=== PATIENT | male | born 1945 | race Caucasian/White ===

== ENCOUNTER 2021-01-12 12:16 | Outpatient (CLI) | payer MEDICARE ==
[2021-01-12 14:01] LABS: Hemoglobin 14.4 g/dL (13.5-17.5); Mean Corpuscular HGB CONC 32.6 g/dL (32.0-36.0); Mean Corpuscular Hemoglobin 30.6 pg (27.0-33.0); Mean Platelet Volume 11.2 fl (7.4-10.4); Platelet Count 207 10x3/uL (150-450); RBC Distribution Width 13.2 % (11.5-14.5); White Blood Cell (WBC) Count 4.4 10x3/uL (3.5-10.5)
[2021-01-12 14:13] LABS: Anion Gap 13 mmol/L (10-20); BUN (Urea Nitrogen) 26 mg/dL (8.4-25.7); Calc. Creatinine Clearance 0 mL/min (70-130); Calcium 9.2 mg/dL (7.8-10.44); Carbon Dioxide 28 mmol/L (23-31); Chloride 104 mmol/L (98-107); Glucose 86 mg/dL (83-110); Potassium 4.7 mmol/L (3.5-5.1); Sodium 140 mmol/L (136-145)
[2021-01-12 16:30] LABS: Hemoglobin A1c 5.5 % (4.0-6.0)
[2021-01-12 23:06] LABS: SARS-CoV-2 PCR by NAA Not Detected (NotDetected)
== END 2021-01-12 12:17 | disposition home or self-care (01) ==
LOC: CSHLAB 12:16
PROVIDERS: ATTEND Orthopaedic Surgery
DX: Z01.812 Encounter for preprocedural laboratory examination (principal); Z20.822 Contact with and (suspected) exposure to COVID-19
CPT/HCPCS: 80048; 83036; 85027; 87081; 87635; 93005; 93010; U0003; U0005

== ENCOUNTER 2021-01-12 12:30 | Inpatient (IN) | payer MEDICARE ==
[2021-01-16 13:53] VITALS: BMI 26.6
[2021-01-17] MEDS ORDERED: Acetaminophen 500 MG TAB ONE (06:07)
[2021-01-17] MEDS ORDERED: CeleCOXIB 100 MG CAP ONE (06:07)
[2021-01-17] MEDS ORDERED: Lidocaine 1% MPF 2 ML VIAL ONE ×2 (06:07→06:29)
[2021-01-17] MEDS ORDERED: Gabapentin 300 MG CAP ONE (06:07)
[2021-01-17] MEDS ORDERED: Ropivacaine 0.5% HCl/PF (150 MG/30 ML VIAL) ONE (06:28)
[2021-01-17] MEDS ORDERED: Ropivacaine 0.2% HCl/PF 20 ML ONE (06:28)
[2021-01-17] MEDS ORDERED: Fentanyl 100 MCG/2 ML VIAL ONE ×3 (06:29→08:27)
[2021-01-17] MEDS ORDERED: Lidocaine 1% PF 5 ML VIAL ONE ×2 (06:30→06:52)
[2021-01-17] MEDS ORDERED: Lidocaine 0.5%/Epinephrine 1:200,000 50 ml Vial ONE (06:31)
[2021-01-17] MEDS ORDERED: Neomycin-Polymyxin 1 ML AMP ONE (06:32)
[2021-01-17] MEDS ORDERED: EPINEPHrine 1 MG/ML AMP ONE ×2 (06:34→07:56)
[2021-01-17] MEDS ORDERED: Dexamethasone 4 mg/ml Vial ONE (06:34)
[2021-01-17] MEDS ORDERED: Ketorolac Tromethamine 30 MG/ML VIAL ONE ×2 (06:34→07:56)
[2021-01-17] MEDS ORDERED: Tranexamic Acid 1,000 MG/10 ML VIAL ONE (06:35)
[2021-01-17] MEDS ORDERED: Ropivacaine 0.2% HCl/PF 40 ML ONE ×3 (06:35→07:56)
[2021-01-17] MEDS ORDERED: Acetaminophen 325 MG TAB PO PRN (06:45)
[2021-01-17] MEDS ORDERED: traMADol HCl 50 MG TAB PO PRN (06:45)
[2021-01-17] MEDS ORDERED: Zolpidem Tartrate 5 MG TAB PO PRN (06:45)
[2021-01-17] MEDS ORDERED: Promethazine HCl 25 MG/ML VIAL IM PRN ×2 (06:45→09:55)
[2021-01-17] MEDS ORDERED: diphenhydrAMINE 25 MG CAP PO PRN (06:45)
[2021-01-17] MEDS ORDERED: Fentanyl 100 MCG/2 ML VIAL SLOW IVP PRN (06:45)
[2021-01-17] MEDS ORDERED: PROPOFOL 20 ML ONE (06:51)
[2021-01-17] MEDS ORDERED: Senokot S 8.6-50 MG TAB PO SCH (09:00)
[2021-01-17] MEDS ORDERED: Meperidine HCl/PF 25 MG/ML VIAL SLOW IVP PRN (09:55)
[2021-01-17] MEDS ORDERED: PACU-Morphine 4MG/ML VIAL SLOW IVP PRN (09:55)
[2021-01-17] MEDS ORDERED: Promethazine HCl 25 MG/ML VIAL SLOW IVP PRN (09:55)
[2021-01-17] MEDS: HYDROcodone/Acetaminophen 10/325 mg Tablet PO PRN (13:44)
[2021-01-17] MEDS: CEFAZOLIN 2 GM in Premix Bag 1 BAG IVPB SCH ×2 (16:43→23:50)
[2021-01-17] MEDS: Ketorolac Tromethamine 30 MG/ML VIAL IVP SCH ×2 (16:43→23:49)
[2021-01-17] MEDS: Sodium Chloride 0.9% 1,000 ML IV SCH (16:54)
[2021-01-17] MEDS: Ondansetron PF 4 MG/2 ML Vial IVP PRN (18:02)
[2021-01-18 04:53] LABS: Hemoglobin 11.9 g/dL (13.5-17.5); Mean Corpuscular HGB CONC 33.7 g/dL (32.0-36.0); Mean Corpuscular Hemoglobin 31.6 pg (27.0-33.0); Mean Corpuscular Volume 93.6 fl (81.2-95.1); Mean Platelet Volume 11.2 fl (7.4-10.4); Platelet Count 186 10x3/uL (150-450); RBC Distribution Width 13.3 % (11.5-14.5); Red Blood Cell (RBC) Count 3.77 10x6/uL (4.32-5.72); White Blood Cell (WBC) Count 10.9 10x3/uL (3.5-10.5)
[2021-01-18] MEDS: Sodium Chloride 0.9% 1,000 ML IV SCH ×3 (06:09→23:28)
[2021-01-18] MEDS: Senokot S 8.6-50 MG TAB PO SCH ×2 (08:17→20:25)
[2021-01-18] MEDS: Multivitamin W/ Minerals 1 TAB PO SCH (08:17)
[2021-01-18] MEDS: Ferrous Gluconate 324 MG TAB PO SCH ×2 (08:17→20:25)
[2021-01-18] MEDS: Ondansetron PF 4 MG/2 ML Vial IVP PRN (08:20)
[2021-01-18] MEDS: Ketorolac Tromethamine 30 MG/ML VIAL IVP SCH ×2 (08:20→17:46)
[2021-01-18] MEDS: HYDROcodone/Acetaminophen 10/325 mg Tablet PO PRN ×2 (14:35→20:26)
[2021-01-19] MEDS: Ketorolac Tromethamine 30 MG/ML VIAL IVP SCH ×2 (00:05→08:14)
[2021-01-19 04:58] LABS: Hemoglobin 10.9 g/dL (13.5-17.5); Mean Corpuscular Hemoglobin 31.7 pg (27.0-33.0); Mean Corpuscular Volume 93.3 fl (81.2-95.1); Mean Platelet Volume 10.9 fl (7.4-10.4); Platelet Count 144 10x3/uL (150-450); RBC Distribution Width 13.7 % (11.5-14.5); Red Blood Cell (RBC) Count 3.44 10x6/uL (4.32-5.72); White Blood Cell (WBC) Count 5.2 10x3/uL (3.5-10.5)
[2021-01-19 06:17] VITALS: TEMP 97.8
[2021-01-19] MEDS: HYDROcodone/Acetaminophen 10/325 mg Tablet PO PRN (06:42)
[2021-01-19] MEDS: Ferrous Gluconate 324 MG TAB PO SCH (08:15)
[2021-01-19] MEDS: Sodium Chloride 0.9% 1,000 ML IV SCH (08:15)
[2021-01-19] MEDS: Multivitamin W/ Minerals 1 TAB PO SCH (08:15)
[2021-01-19] MEDS: Senokot S 8.6-50 MG TAB PO SCH (08:15)
[2021-01-19 14:48] VITALS: BP 142/82
[2021-01-20 13:39] LABS: Fungus Stain Final report (.)
[2021-02-16 13:19] LABS: Fungus Culture Final report (.)
== END 2021-01-19 12:45 | disposition home or self-care (01) | DRG 467 ==
LOC: CSHTELE 01-17 05:50
PROVIDERS: ADMIT Orthopaedic Surgery; ATTEND Orthopaedic Surgery
PROC: 0SPD0EZ Removal of Articulating Spacer from Left Knee Joint, Open Approach (ICD-10-PCS; principal; 2021-01-17)
PROC: 0SRD0J9 Replacement of Left Knee Joint with Synthetic Substitute, Cemented, Open Approach (ICD-10-PCS; 2021-01-17)
DX: T84.033A Mechanical loosening of internal left knee prosthetic joint, initial encounter (principal); M25.062 Hemarthrosis, left knee; D62 Acute posthemorrhagic anemia; Z20.822 Contact with and (suspected) exposure to COVID-19; M89.552 Osteolysis, left thigh; M89.562 Osteolysis, left lower leg; T84.023A Instability of internal left knee prosthesis, initial encounter; I25.10 Atherosclerotic heart disease of native coronary artery without angina pectoris; Z95.1 Presence of aortocoronary bypass graft; I95.9 Hypotension, unspecified; R11.2 Nausea with vomiting, unspecified; Z79.01 Long term (current) use of anticoagulants; Z79.82 Long term (current) use of aspirin; Z79.899 Other long term (current) drug therapy
CPT/HCPCS: 36415; 36416; 85027; 87070; 87102; 87205; 87206; J0171; J0690; J0735; J1100; J1885; J2001; J2405; J2704; J2795; J3010; J3370